=== PATIENT | male | born 1940 | race Caucasian/White ===

== ENCOUNTER 2024-02-09 19:41 | Outpatient (CLI) | payer MEDICARE, BC, SELFPAY | END 2024-02-09 19:42 | disposition home or self-care (01) | LOC: AMB 02-26 06:52 | PROVIDERS: Visit Provider Family Medicine | DX: R53.81 Other malaise (principal); R06.02 Shortness of breath; R42 Dizziness and giddiness; R11.10 Vomiting, unspecified | CPT/HCPCS: A0425; A0427 ==